=== PATIENT | female | born 1980 | race Two or more races ===

== ENCOUNTER 2017-02-07 13:02 | Emergency (ER) | payer OTHER, MEDICAID ==
[~2017-02-07] VITALS: Ht 157.5 cm; Wt 95.0 kg
[2017-02-07] MEDS ORDERED: SODIUM CHLORIDE 0.9% 1,000 ML IV ONE (13:25)
[2017-02-07] MEDS ORDERED: SODIUM CHLORIDE 0.9% 1,000ML IVBOLUS ONE (13:30)
[2017-02-07] MEDS ORDERED: ONDANSETRON 2MG/ML, 2ML IVPush ONE (13:30)
[2017-02-07] MEDS ORDERED: SODIUM CHLORIDE FLUSH 10ML SYR IVF ONE (13:30)
[2017-02-07] MEDS ORDERED: ONDANSETRON 2MG/ML, 2ML ONE (14:33)
[2017-02-07] MEDS ORDERED: morphine SULFATE 10 MG/ML, 1ML ONE ×2 (14:33→16:55)
[2017-02-07] MEDS: MORPHINE SULFATE 4 MG/ML, 1ML IVPush PRN ×2 (14:35→16:57)
[2017-02-07 14:40] LABS: HEMATOCRIT 41.9 % (34.6-47.8); WHITE BLOOD COUNT 8.1 x10^3/uL (3.4-10)
[2017-02-07 14:47] LABS: ASPARTATE AMINO TRANSFERASE 16 U/L (15-37); BLOOD UREA NITROGEN 13 mg/dL (7-18)
[2017-02-07] MEDS ORDERED: OMNIPAQUE 350 MG/ML, 100ML BOTTLE ONE (16:31)
[2017-02-07 17:50] VITALS: BP 108/68
== END 2017-02-07 17:55 | disposition home or self-care (01) ==
LOC: ED 15:30
DX: R10.31 Right lower quadrant pain (principal); R10.11 Right upper quadrant pain; R11.2 Nausea with vomiting, unspecified
CPT/HCPCS: 36415; 74177; 76830; 80053; 81003; 83605; 84703; 85025; 96361; 96374; 96375; 96376; 99285; J2405; J7030; Q9967